=== PATIENT | female | born 1965 | race African-American/Black ===

== ENCOUNTER 2020-08-18 07:53 | Outpatient (REF) | payer BC, SELFPAY | END 2020-08-18 07:54 | disposition home or self-care (01) | LOC: HO.LAB 07:53 | PROVIDERS: PCP Internal Medicine; Visit Provider Internal Medicine | DX: Z20.828 Contact with and (suspected) exposure to other viral communicable diseases (principal) | CPT/HCPCS: 87635 ==

== ENCOUNTER 2021-03-13 17:28 | Emergency (ER) | payer BC, SELFPAY ==
--- NOTE | ~2021-03-13 | CT_ITS ---
EXAMINATION: CTA CHEST WITHOUT AND WITH CONTRAST (PE STUDY) CT ABDOMEN AND PELVIS WITH CONTRAST CLINICAL INFORMATION: Abdomen pain. Fevers. COMPARISON: Portions of a previous chest CT 10/17/16. TECHNIQUE: Multidetector CT of the abdomen and pelvis. The patient received: Oral contrast: No Intravenous contrast: 75 mL of Omnipaque 350 No contrast reaction reported Sagittal and coronal reformatted images were obtained on the technologist workstation. Total exam dose-length product 617 mGy-cm This CT examination was performed using dose optimization techniques as appropriate, variously including the following: *Automated exposure control *Adjustment of mA and/or kV according to patient size (this includes techniques or standardized protocols for targeted exams where dose is matched to indication/reason for exam; i.e. extremities or head) *Use of iterative reconstruction technique CLINICAL INFORMATION: Chest pain. Pleuritic pain. History of cancer. TECHNIQUE: CT angiography of the chest. Multidetector CT helical examination of the chest during the rapid IV administration 75 mL of intravenous Omnipaque 350. Extensive postprocessing was performed including reformatting and multiplanar reconstructions with maximum intensity projections. Pulmonary embolus technique. FINDINGS: Bolus quality: Adequate Pulmonary arteries: No pulmonary embolus demonstrated. The main pulmonary arteries are normal caliber. Lung: No abnormality the central airways. No suspicious mass or nodule. No change in a 0.3 cm nodule in the right middle lobe lateral segment. This does not require any further evaluation. No consolidation or edema. Pleura: No pleural effusion or pneumothorax. Mediastinum: There are no enlarged mediastinal or hilar lymph nodes. No suspicious abnormality esophagus. Vascular: There is no thoracic aortic aneurysm. No pericardial fluid. Chest Wall/Axilla: There are asymmetrically prominent left axillary lymph nodes. Correlate with recent vaccination. ABDOMEN/PELVIS: Liver, Gallbladder, And Biliary Tree: No suspicious abnormality of the liver. There is no opaque gallstone. There is no biliary dilation. Pancreas: Within normal limits Spleen: Normal Adrenal Glands: Normal Kidneys And Ureters: Limited by motion. There is no dilation of the urinary collecting system on either side. No suspicious renal mass. Some high density in the central aspect of each kidney likely represents excreted contrast. Detecting small calculi would be difficult. Gastrointestinal Tract: No localized colonic wall thickening. No CT evidence of acute appendicitis. Nonspecific pattern of fluid in gas within the small bowel. No suspicious abnormality in the stomach. The distal esophagus is slightly patulous. Abdominal Wall: No significant hernia is appreciated. Lymphovascular Structures And Fluid: There is no abdominal aortic aneurysm. The portal vein enhances. No measurably enlarged abdominal or pelvic lymph nodes. Bladder: No suspicious abnormality. Pelvic Viscera: The uterus may be surgically absent. No suspicious adnexal mass or collection. Musculoskeletal: No acute or suspicious osseous abnormality. CT/CT angio chest PE protocol IMPRESSION: No pulmonary embolus. No pneumonia or edema. No evidence of abdominal abscess or high-grade bowel obstruction. VTE: Negative
--- NOTE | 2021-03-13 18:13 | ED_ITS ---
HPI - Abdominal Pain General Chief Complaint: Dyspnea Stated Complaint: sob, fever, abd pain Time Seen by Provider: 03/13/21 18:13 Source: patient Mode of arrival: ambulatory Limitations: no limitations History of Present Illness MD elicited complaint: abdominal pain and other (dyspnea, fevers) Onset (ago): day(s) (today ) Pain Consistency: constant Location: diffuse Severity: moderate Quality: aching and fullness Radiation: none Migration to: no migration Exacerbating factors: movement Relieving factors: nothing Associated symptoms: nausea, fever, chills and other (dyspnea) Related Data Previous Rx's Medication Instructions Recorded azithromycin 250 mg tablet See Rx Instructions PO .COMPLEX #6 10/01/20 tab Allergies Allergy/AdvReac Type Severity Reaction Status Date / Time No Known Allergies Allergy Mild N/A Unverified 07/08/20 16:26 Review of Systems Review of Systems Constitutional : No Weight loss, pos Fever, pos Chills ENT/Mouth : No sore throat, No Rhinorrhea Eyes: No Swelling, No Redness Cardiovascular : No Chest Pain, pos SOB, NoEdema Respiratory : No Cough, No Sputum, No Wheezing Gastrointestinal : Positive Nausea, no Vomiting, no Diarrhea, positive abdominal Pain, No Hematochezia, No Melena Genitourinary : No Dysuria, No Urinary Frequency, No Hematuria, No Urgency Musculoskeletal : No joint pain, No Myalgias, No Joint Swelling Skin : No Skin Lesions, No rash Neuro : No Weakness, No Numbness, No Dizziness, No Headache Psych : No Anxiety/Panic, No Depression Heme/Lymph: No Bruising, No Lymphadenopathy Endocrine : No Polyuria, No Polydipsia All other systems reviewed and are negative. Physical Exam Vital Signs: Vital Signs: Last Vital Signs Temp 100.1 F 03/13/21 20:03 Pulse 77 03/13/21 20:03 Resp 18 03/13/21 20:03 BP 126/54 L 03/13/21 20:03 Pulse Ox 98 03/13/21 20:03 Body Mass Index 22.7 Appearance: Alert. Oriented X3. Anxious No acute distress. Eyes: Pupils equal, round and reactive to light. ENT: Pharynx normal. Neck: Normal inspection. Neck supple. CVS: Normal heart rate and rhythm. Pulses normal. Respiratory: No respiratory distress. Breath sounds normal. Mild tachypnea Abdomen: Soft and moderate epigastric ttp no rebound or guarding Skin: Skin warm and dry. Normal skin color. Normal skin turgor. Extremities: No lower extremity edema. No calf ttp Neuro: Oriented X 3. No motor deficit. No sensory deficit. Course Course Course Narrative: negative COVID, negative CTA and negative CT abdomen no WBC count no UTI no source of fever at this time, no meningeal signs possible viral will send home with precautions MDM - Abdominal Pain MDM Narrative Medical decision making narrative: 55 yo female with no sig PMH here with reports of fever, abdominal pain and shortness of breath - at this time very vague complaints will new onset shortness of breath, fevers and upper abdominal pain at this time will need labs, lactic acid, cultures, CT scan of abdomen to r/o colitis, PE study given fevers and reported sudden onset of shortness of breath, dispo per results and findings. Lab Data Result diagrams: 03/13/21 19:10 03/13/21 19:10 Labs: Lab Results 03/13/21 03/13/21 03/13/21 Range/Units 19:10 19:10 19:10 WBC 6.4 (4.8-10.8) X10*3/uL RBC 4.15 L (4.20-5.50) X10*6/uL Hgb 12.9 (12.0-16.0) g/dl Hct 38.3 (37-47) % MCV 92.3 (80-98) fL MCH 31.1 (27.0-33.0) pg MCHC 33.7 (31.0-35.0) g/dl RDW 13.2 (11.0-16.0) % Plt Count 263 (160-400) X10*3/uL MPV 9.2 L (9.4-12.3) fL Immature Gran % (Auto) 0.3 (0.0-0.4) % Neut % (Auto) 79.8 H (45-73) % Lymph % (Auto) 7.6 L (20-40) % [place] % (Auto) 11.9 H (2-11) % Eos % (Auto) 0.2 (0-4) % Baso % (Auto) 0.2 (0-2) % Lymph # (Auto) 0.5 L (1.2-4.9) X10*3/uL [place] # (Auto) 0.8 (0.1-1.2) X10*3/uL Eos # (Auto) 0.0 (0.0-0.4) X10*3/uL Baso # (Auto) 0.0 (0.0-0.2) X10*3/uL Abs Immat Gran (auto) 0.02 (0.00-0.03) X10*3/uL Absolute Neuts (auto) 5.1 (2.0-8.3) X10*3/uL Absolute Nucleated RBC 0.000 (0.0-0.012) X10*3/uL Nucleated RBC % (auto) 0.0 (0.0-0.2) /100WBC Smear Tech's Comments VERIFIED Sodium 138 (135-145) mmol/L Potassium 4.1 (3.3-5.1) mmol/L Chloride 102 (96-108) mmol/L Carbon Dioxide 25 (22-29) mmol/L Anion Gap 15 (12-20) BUN 11 (9-16) mg/dL Creatinine 0.97 (0.5-1.4) mg/dL Estim Creat Clear Calc 62.2 Estimated GFR 59 Random Glucose 91 (60-115) mg/dL Lactic Acid (0.5-2.0) mmol/L Calcium 9.5 (8.4-10.2) mg/dL Magnesium (1.6-2.6) mg/dL Total Bilirubin (0.0-1.0) mg/dL Direct Bilirubin (0.0-0.5) mg/dL AST (5-31) U/L ALT (0-31) U/L Alkaline Phosphatase (39-117) U/L Troponin I High Sens (<3.5-17.0) ng/L Total Protein (6.5-8.0) g/dL Albumin (3.5-5.0) g/dL Lipase (8-78) U/L Urine Color Urine Appearance Urine pH (5.0-8.0) Ur Specific [place] (1.005-1.025) Urine Protein (NEG-TRACE) MG/DL Urine Glucose (UA) (NEG) MG/DL Urine Ketones (NEG) MG/DL Urine Blood (NEG) Urine Nitrite (NEG) Ur Leukocyte Esterase (NEG) Urine RBC (0) /HPF Urine WBC (0-4) /HPF Ur Squamous Epith Cells /LPF Urine Bacteria /LPF Urine Mucus /LPF COVID-19 (PEDRITO) Negative (Negative) COVID-19 Clin Com See Note 03/13/21 03/13/21 03/13/21 Range/Units 19:10 19:10 19:10 WBC (4.8-10.8) X10*3/uL RBC (4.20-5.50) X10*6/uL Hgb (12.0-16.0) g/dl Hct (37-47) % MCV (80-98) fL MCH (27.0-33.0) pg MCHC (31.0-35.0) g/dl RDW (11.0-16.0) % Plt Count (160-400) X10*3/uL MPV (9.4-12.3) fL Immature Gran % (Auto) (0.0-0.4) % Neut % (Auto) (45-73) % Lymph % (Auto) (20-40) % [place] % (Auto) (2-11) % Eos % (Auto) (0-4) % Baso % (Auto) (0-2) % Lymph # (Auto) (1.2-4.9) X10*3/uL [place] # (Auto) (0.1-1.2) X10*3/uL Eos # (Auto) (0.0-0.4) X10*3/uL Baso # (Auto) (0.0-0.2) X10*3/uL Abs Immat Gran (auto) (0.00-0.03) X10*3/uL Absolute Neuts (auto) (2.0-8.3) X10*3/uL Absolute Nucleated RBC (0.0-0.012) X10*3/uL Nucleated RBC % (auto) (0.0-0.2) /100WBC Smear Tech's Comments Sodium (135-145) mmol/L Potassium (3.3-5.1) mmol/L Chloride (96-108) mmol/L Carbon Dioxide (22-29) mmol/L Anion Gap (12-20) BUN (9-16) mg/dL Creatinine (0.5-1.4) mg/dL Estim Creat Clear Calc Estimated GFR Random Glucose (60-115) mg/dL Lactic Acid 1.1 (0.5-2.0) mmol/L Calcium (8.4-10.2) mg/dL Magnesium 1.7 (1.6-2.6) mg/dL Total Bilirubin 0.7 (0.0-1.0) mg/dL Direct Bilirubin 0.2 (0.0-0.5) mg/dL AST 23 (5-31) U/L ALT 18 (0-31) U/L Alkaline Phosphatase 77 (39-117) U/L Troponin I High Sens < 3.5 (<3.5-17.0) ng/L Total Protein 7.8 (6.5-8.0) g/dL Albumin 4.6 (3.5-5.0) g/dL Lipase 44 (8-78) U/L Urine Color Urine Appearance Urine pH (5.0-8.0) Ur Specific [place] (1.005-1.025) Urine Protein (NEG-TRACE) MG/DL Urine Glucose (UA) (NEG) MG/DL Urine Ketones (NEG) MG/DL Urine Blood (NEG) Urine Nitrite (NEG) Ur Leukocyte Esterase (NEG) Urine RBC (0) /HPF Urine WBC (0-4) /HPF Ur Squamous Epith Cells /LPF Urine Bacteria /LPF Urine Mucus /LPF COVID-19 (PEDRITO) (Negative) COVID-19 Clin Com 03/13/21 Range/Units 20:05 WBC (4.8-10.8) X10*3/uL RBC (4.20-5.50) X10*6/uL Hgb (12.0-16.0) g/dl Hct (37-47) % MCV (80-98) fL MCH (27.0-33.0) pg MCHC (31.0-35.0) g/dl RDW (11.0-16.0) % Plt Count (160-400) X10*3/uL MPV (9.4-12.3) fL Immature Gran % (Auto) (0.0-0.4) % Neut % (Auto) (45-73) % Lymph % (Auto) (20-40) % [place] % (Auto) (2-11) % Eos % (Auto) (0-4) % Baso % (Auto) (0-2) % Lymph # (Auto) (1.2-4.9) X10*3/uL [place] # (Auto) (0.1-1.2) X10*3/uL Eos # (Auto) (0.0-0.4) X10*3/uL Baso # (Auto) (0.0-0.2) X10*3/uL Abs Immat Gran (auto) (0.00-0.03) X10*3/uL Absolute Neuts (auto) (2.0-8.3) X10*3/uL Absolute Nucleated RBC (0.0-0.012) X10*3/uL Nucleated RBC % (auto) (0.0-0.2) /100WBC Smear Tech's Comments Sodium (135-145) mmol/L Potassium (3.3-5.1) mmol/L Chloride (96-108) mmol/L Carbon Dioxide (22-29) mmol/L Anion Gap (12-20) BUN (9-16) mg/dL Creatinine (0.5-1.4) mg/dL Estim Creat Clear Calc Estimated GFR Random Glucose (60-115) mg/dL Lactic Acid (0.5-2.0) mmol/L Calcium (8.4-10.2) mg/dL Magnesium (1.6-2.6) mg/dL Total Bilirubin (0.0-1.0) mg/dL Direct Bilirubin (0.0-0.5) mg/dL AST (5-31) U/L ALT (0-31) U/L Alkaline Phosphatase (39-117) U/L Troponin I High Sens (<3.5-17.0) ng/L Total Protein (6.5-8.0) g/dL Albumin (3.5-5.0) g/dL Lipase (8-78) U/L Urine Color YELLOW Urine Appearance CLEAR Urine pH 6.0 (5.0-8.0) Ur Specific [place] 1.010 (1.005-1.025) Urine Protein NEG (NEG-TRACE) MG/DL Urine Glucose (UA) NEG (NEG) MG/DL Urine Ketones 15 (NEG) MG/DL Urine Blood TRACE (NEG) Urine Nitrite NEG (NEG) Ur Leukocyte Esterase NEG (NEG) Urine RBC 0-2 (0) /HPF Urine WBC 0-2 (0-4) /HPF Ur Squamous Epith Cells TRACE /LPF Urine Bacteria TRACE /LPF Urine Mucus NONE /LPF COVID-19 (PEDRITO) (Negative) COVID-19 Clin Com ECG Data Attestation: I personally reviewed and interpreted this ECG as follows: ECG interpretation date: 03/13/21 ECG interpretation time: 18:58 Interpretation: Rate: 85 Rhythm: NSR with occ PVCs Lookout: normal Normal P waves. Normal EPHRAIM. Normal QRS complex. ST T wave : no BRAN, nonspecific inf leads qTC: normal prior studies: no acute ischemia The study has been interpreted contemporaneously by me. . Discharge Plan Discharge Clinical Impression: Fever Qualifiers: Fever type: due to other condition Qualified Code(s): R50.81 - Fever presenting with conditions classified elsewhere Patient Disposition: Home, Self-Care Additional Instructions: return to ED for any worsening symptoms or concerns negative COVID, negative urine for infection, negative CTA for PE and pneumonia, no acute infection in the abdomen repeat COVID test in 2 days Prescriptions: No Action azithromycin 250 mg tablet See Rx Instructions PO .COMPLEX Qty: 6 RF: 0 Referrals: Son Thompson MD [Primary Care Provider] - 2 days (if not better) Stand Alone Forms: Work/School Release [facility] Past Medical History Attestation statement: The following information was validated with the patient. Surgical History History of hysterectomy Social History Social History Alcohol intake: current Alcohol intake frequency: a few times a month Smoking Status: Current every day smoker Use of substances other than those prescribed or required for medical reasons: No Advance Directives: No Advance Directives Information Provided: Yes
[2021-03-13 18:19] VITALS: BP 139/80; PULSE 91; RESP 17; TEMP 37.6; O2SAT 98
--- NOTE | 2021-03-13 18:23 | ECG_ITS ---
Test Reason : dyspnea Blood Pressure : / mmHG Vent. Rate : 085 BPM Atrial Rate : 085 BPM P-R Int : 158 ms QRS Dur : 084 ms QT Int : 352 ms P-R-T Axes : 086 077 035 degrees QTc Int : 418 ms Sinus rhythm with occasional Premature ventricular complexes Otherwise normal ECG No previous ECGs available Referred By: Jayde Green Electronically Signed By:RADHA KIDD
[2021-03-13 18:50] VITALS: BP 142/79; PULSE 80; RESP 22; TEMP 38.8; O2SAT 99; BMI 22.7
[2021-03-13 19:20] LABS: Basophils Percent Auto 0.2 % (0-2); Eosinophils Percent Auto 0.2 % (0-4); Hematocrit 38.3 % (37-47); Hemoglobin 12.9 g/dl (12.0-16.0); Imm Gran Abs Auto 0.02 X10*3/uL (0.00-0.03); Imm Gran Pct Auto 0.3 % (0.0-0.4); Lymphocytes Absolute Auto 0.5 X10*3/uL (1.2-4.9); Lymphocytes Percent Auto 7.6 % (20-40); MANUAL DIFF FLAG SCAN; Mean Corpuscular HGB Conc 33.7 g/dl (31.0-35.0); Mean Corpuscular Hemoglobin 31.1 pg (27.0-33.0); Mean Corpuscular Volume 92.3 fL (80-98); Mean Platelet Volume 9.2 fL (9.4-12.3); Monocytes Absolute Auto 0.8 X10*3/uL (0.1-1.2); Monocytes Percent Auto 11.9 % (2-11); Neutrophils Absolute Auto 5.1 X10*3/uL (2.0-8.3); Neutrophils Percent Auto 79.8 % (45-73); Platelet Count 263 X10*3/uL (160-400); Red Blood Count 4.15 X10*6/uL (4.20-5.50); Red Cell Distribution Width 13.2 % (11.0-16.0); SCAN SMEAR FLAG 1; White Blood Count 6.4 X10*3/uL (4.8-10.8)
[2021-03-13] MEDS: 0.9 % Sodium Chloride 500 ML IV (19:25)
[2021-03-13] MEDS: ondansetron HCL 4 MG/2 ML VIAL IVPUSH (19:25)
[2021-03-13] MEDS: Acetaminophen 325 MG TABLET 650 MG PO (19:26)
[2021-03-13] MEDS: Morphine Sulfate 4 MG/ML CARTRIDGE IVPUSH (19:26)
[2021-03-13 19:38] LABS: SLIDE REVIEW VERIFIED
[2021-03-13 19:39] LABS: COVID-19 Test Negative (Negative)
[2021-03-13 19:45] LABS: Lactic Acid 1.1 mmol/L (0.5-2.0)
[2021-03-13 19:48] LABS: Anion Gap 15 (12-20); Blood Urea Nitrogen 11 mg/dL (9-16); Calcium 9.5 mg/dL (8.4-10.2); Carbon Dioxide 25 mmol/L (22-29); Chloride 102 mmol/L (96-108); Creatinine Clr Calc Pharmacy 62.2; Estimated Glomerular Filt Rate 59; Glucose Random 91 mg/dL (60-115); Potassium 4.1 mmol/L (3.3-5.1); Sodium 138 mmol/L (135-145)
[2021-03-13 19:49] LABS: Alanine Aminotransferase 18 U/L (0-31); Albumin Level 4.6 g/dL (3.5-5.0); Alkaline Phosphatase 77 U/L (39-117); Aspartate Amino Transferase 23 U/L (5-31); Bilirubin Direct 0.2 mg/dL (0.0-0.5); Bilirubin Total 0.7 mg/dL (0.0-1.0); Lipase 44 U/L (8-78); Magnesium 1.7 mg/dL (1.6-2.6); Total Protein 7.8 g/dL (6.5-8.0)
[2021-03-13 19:54] LABS: Troponin-I High Sensitivity < 3.5 ng/L (<3.5-17.0)
[2021-03-13 20:03] VITALS: BP 126/54; PULSE 77; RESP 18; TEMP 37.8; O2SAT 98
[2021-03-13 20:34] LABS: Color Urine YELLOW; Glucose Urine UA NEG (NEG); Leukocyte Esterase Urine NEG (NEG); Nitrite Urine NEG (NEG); Urine Blood TRACE (NEG); Urine Ketones 15 MG/DL (NEG); Urine Protein NEG (NEG-TRACE)
[2021-03-13 20:35] LABS: Appearance Urine CLEAR
[2021-03-13 20:42] LABS: Bacteria Urine TRACE /LPF; RBC Urine 0-2 /HPF (0); Squamous Epithelial Cell Urine TRACE /LPF; WBC Urine 0-2 /HPF (0-4)
[2021-03-13] MEDS: iohexoL 350 MG/ML 100 ML INFUS..BTL IV (21:31)
[2021-03-13 21:51] VITALS: BP 115/70; PULSE 75; RESP 18; TEMP 37.4; O2SAT 97
== END 2021-03-13 22:06 | disposition home or self-care (01) ==
PROVIDERS: Emergency Provider Emergency Medicine; PCP Internal Medicine
DX: R50.9 Fever, unspecified (principal); R06.00 Dyspnea, unspecified; R06.02 Shortness of breath; Z20.822 Contact with and (suspected) exposure to COVID-19; F17.200 Nicotine dependence, unspecified, uncomplicated; Z71.6 Tobacco abuse counseling; Z79.899 Other long term (current) drug therapy
CPT/HCPCS: 36415; 71275; 74177; 80048; 80076; 81001; 83605; 83690; 83735; 84484; 85025; 87040; 87635; 93005; 96365; 96375; 99285; J2270; J2405; Q9967

== ENCOUNTER 2021-03-16 08:19 | Emergency (ER) | payer BC, SELFPAY ==
--- NOTE | ~2021-03-16 | XR_ITS ---
EXAMINATION: XR CHEST CLINICAL INFORMATION: Cough. Shortness of breath. COMPARISON: Previous chest CTA most recent February 2021 and chest x-ray most recent February 2011 TECHNIQUE: Frontal view of the chest was obtained. FINDINGS: The cardiac and mediastinal contours are normal. There are nodular densities at both lung bases which when compared previous chest CT scan likely represent nipple shadows. The lungs are otherwise clear. There is no pleural effusion or pneumothorax. Bony structures are unremarkable. XR/XR chest 1V IMPRESSION: No evidence for acute disease in the chest.
--- NOTE | 2021-03-16 08:35 | ECG_ITS ---
Test Reason : EPIGASTRIC PAIN Blood Pressure : / mmHG Vent. Rate : 087 BPM Atrial Rate : 087 BPM P-R Int : 160 ms QRS Dur : 088 ms QT Int : 346 ms P-R-T Axes : 084 085 051 degrees QTc Int : 416 ms Normal sinus rhythm Normal ECG When compared with ECG of 13-MAR-2021 18:54, Premature ventricular complexes are no longer Present Referred By: Sophie Logan Electronically Signed By:RADHA KIDD
--- NOTE | 2021-03-16 08:38 | ED.GENADULT ---
HPI - General Adult General Stated complaint: flu like symptoms <Sophie Logan NP - Last Filed: 03/16/21 16:19> Time Seen by Provider: 03/16/21 08:26 <Sophie Logan NP - Last Filed: 03/16/21 16:19> Source: patient and family <BEN Jose Last Filed: 03/16/21 16:19> Mode of arrival: ambulatory <BEN Jose Last Filed: 03/16/21 16:19> Limitations: no limitations <BEN Jose Last Filed: 03/16/21 16:19> History of Present Illness HPI narrative: 55 yo female previously healthy here with complaints of fever up to 103.8, dry cough, shortness of breath, epigastric pain, nausea and vomiting x 4 days. She has had some constipation but today had 2 loose bowel movements described as diarrhea. No headache, neck pain, joint pain, rash, chest pain. Patient denies any recent travel. No sick contacts. No recent tick bites. Has a dog and cat at home. Seen here Sunday when symptoms 1st began and had a CT of the chest and abdomen which were negative. She also had negative urine, labs and COVID screen. She was discharged home with diagnosis of viral syndrome. Patient tells me she has continued to have symptoms however. Very little p.o. intake now feeling weak. COVID vaccine x2 in January. <Sopihe Logan NP - Last Filed: 03/16/21 16:19> Related Data Home medications: Previous Rx's Medication Instructions Recorded azithromycin 250 mg tablet See Rx Instructions PO .COMPLEX #6 10/01/20 tab doxycycline monohydrate 100 mg PO BID #20 cap 03/16/21 ondansetron 4 mg PO Q6H PRN #10 tab 03/16/21 <BEN Jose Last Filed: 03/16/21 16:19> Allergies/adverse reactions: Allergies Allergy/AdvReac Type Severity Reaction Status Date / Time No Known Allergies Allergy Mild N/A Unverified 07/08/20 16:26 <BEN Jose Last Filed: 03/16/21 16:19> Review of Systems Review of Systems: Yes all other systems are reviewed and are negative <Sophie Logan NP - Last Filed: 03/16/21 16:19> Constitutional: Constitutional: Reports no additional constitutional complaints, Denies body ache(s), Denies chills, Reports fever(s), Denies headache(s) and Reports weakness <Sophie Logan NP - Last Filed: 03/16/21 16:19> Eyes: Eyes: Reports no additional eye complaints and Denies change in vision <Sophie Logan RECEIVING WORKER - Last Filed: 03/16/21 16:19> ENT: Reports system reviewed and no additional complaints, except as documented, Denies dizziness, Denies headache(s), Denies nasal congestion, Denies nasal discharge and Denies neck pain <Sophie Logan NP - Last Filed: 03/16/21 16:19> Cardiovascular: Cardiovascular: Reports no additional cardiovascular complaints, Denies chest pain, Denies leg edema and Reports dyspnea <Sophie Logan NP - Last Filed: 03/16/21 16:19> Respiratory: Respiratory: Reports no additional respiratory complaints, Reports cough and Reports dyspnea <Sophie Logan NP - Last Filed: 03/16/21 16:19> Gastrointestinal: Gastrointestinal: Reports no additional gastrointestinal complaints, Reports abdominal pain, Denies diarrhea, Reports nausea and Reports vomiting <Sophie Logan NP - Last Filed: 03/16/21 16:19> Genitourinary: Genitourinary: Reports no additional female genitourinary complaints and Denies urinary incontinence <Sophie Logan NP - Last Filed: 03/16/21 16:19> Musculoskeletal: Musculoskeletal: Reports no additional musculoskeletal complaints, Denies back pain, Denies arthralgias, Denies joint swelling, Denies neck pain, Denies numbness and Denies tingling <Sophie Logan NP - Last Filed: 03/16/21 16:19> Integumentary/Breasts: Skin/Breast: Reports system reviewed and no additional complaints, except as docu and Denies rash <Sophie Logan NP - Last Filed: 03/16/21 16:19> Neurologic: Reports system reviewed and no additional complaints, except as documented, Denies Abnormal speech present, Denies dizziness, Denies headache(s), Denies numbness, Denies tingling and Reports weakness <Sophie Logan NP - Last Filed: 03/16/21 16:19> [facility] Past Medical History Attestation statement: The following information was validated with the patient. <Spohie Logan NP - Last Filed: 03/16/21 16:19> Source: old records reviewed and nursing notes reviewed <Sophie Logan NP - Last Filed: 03/16/21 16:19> Surgical History: Surgical History History of hysterectomy <Sophie Logan NP - Last Filed: 03/16/21 16:19> Social History Social History: Social History Alcohol intake: current Alcohol intake frequency: does not drink Smoked in Last 30 Days: No Use of substances other than those prescribed or required for medical reasons: Yes Substance Use Type: Marijuana Advance Directives: Yes Advance Directives Information Provided: No Advance Directives on File: No <Sophie Logan NP - Last Filed: 03/16/21 16:19> Physical Exam Vital Signs: Vital Signs: Last Vital Signs Temp 100.3 F 03/16/21 13:37 Pulse 89 03/16/21 14:00 Resp 16 03/16/21 14:00 BP 114/58 L 03/16/21 14:00 Pulse Ox 97 03/16/21 14:00 Body Mass Index 23.3 <Sophie Logan NP - Last Filed: 03/16/21 16:19> Vital Signs: Last Vital Signs Temp 100.3 F 03/16/21 13:37 Pulse 89 03/16/21 14:00 Resp 16 03/16/21 14:00 BP 114/58 L 03/16/21 14:00 Pulse Ox 97 03/16/21 14:00 Body Mass Index 23.3 <Barrington Low MD - Last Filed: 03/16/21 10:42> Const: General: cooperative, healthy appearing, comfortable and no acute distress <Sophie Logan NP - Last Filed: 03/16/21 16:19> Orientation/consciousness: patient oriented x3 <Sophie Logan NP - Last Filed: 03/16/21 16:19> Limitations: no limitations <Sophie Logan NP - Last Filed: 03/16/21 16:19> HENMT: Head: Yes normal to inspection <Sophie Logan NP - Last Filed: 03/16/21 16:19> Ears: hearing grossly normal bilaterally and TM's normal bilaterally <Sophie Logan NP - Last Filed: 03/16/21 16:19> General nose exam: Normal external nose present <Sophie Logan NP - Last Filed: 03/16/21 16:19> Face and sinus: Yes normal facial exam <Sophie Logan NP - Last Filed: 03/16/21 16:19> Mouth: Normal oral and palatal mucosa present <Sophie Logan NP - Last Filed: 03/16/21 16:19> Throat: Yes posterior oropharynx normal, Yes tonsils normal and Yes uvula midline <Sophie Logan NP - Last Filed: 03/16/21 16:19> Eyes: General: appearance normal, both eyes and all related structures <Sophie Logan NP - Last Filed: 03/16/21 16:19> Pupils: Equal, round and reactive pupils present <Sophie Logan NP - Last Filed: 03/16/21 16:19> Neck: Neck: Yes normal visual inspection, Yes full ROM, Yes no lymphadenopathy and Yes no meningeal signs <Sophie Logan NP - Last Filed: 03/16/21 16:19> Chest: Chest palpation & inspection: normal inspection of the chest <Sophie Logan NP - Last Filed: 03/16/21 16:19> Resp: Effort & Inspection: normal respiratory effort <Sophie Logan NP - Last Filed: 03/16/21 16:19> Auscultation: clear to auscultation bilaterally <Sophie Logan NP - Last Filed: 03/16/21 16:19> Cardio: Rate: regular rate <Sophie Logan NP - Last Filed: 03/16/21 16:19> Rhythm: regular rhythm <Sophie Logan NP - Last Filed: 03/16/21 16:19> Peripheral pulses: Peripheral pulses 2+ throughout <Sophie Logan NP - Last Filed: 03/16/21 16:19> GI: Inspection: Yes normal to inspection <Sophie Logan NP - Last Filed: 03/16/21 16:19> Palpation (GI): Soft to palpation and Tenderness to palpation present (GI) (Epigastric tenderness-moderate with guarding) <Sophie Logan NP - Last Filed: 03/16/21 16:19> Auscultation: normal bowel sounds <Sophie Logan NP - Last Filed: 03/16/21 16:19> Back/Spine/Pelvis: Thoracic/Lumbar Spine: thoracic and lumbar spine normal to inspection <Sophie Logan NP - Last Filed: 03/16/21 16:19> Skin: General skin exam: no rashes or lesions noted <Sophie Logan NP - Last Filed: 03/16/21 16:19> Neuro: General: patient oriented x3, no meningeal signs, no focal motor deficits and normal sensation to monofilament <Sophie Logan NP - Last Filed: 03/16/21 16:19> Cranial nerves: Yes Equal, round and reactive pupils present <Sophie Logan RECEIVING WORKER - Last Filed: 03/16/21 16:19> Cognition (Neuro): normal cognition <Sophie Logan NP - Last Filed: 03/16/21 16:19> Speech: No Abnormal speech present <Sophie Logan NP - Last Filed: 03/16/21 16:19> Gait exam (Neuro): Normal gait present <Sophie Logan NP - Last Filed: 03/16/21 16:19> Motor exam (neuro): 5/5 motor strength present throughout <Sophie Logan NP - Last Filed: 03/16/21 16:19> Extrem: General: Yes normal to inspection, Yes no pedal edema and Yes no calf tenderness <Sophie Logan NP - Last Filed: 03/16/21 16:19> Course Course Course Narrative: 55-year-old female here with 4 days of shortness of breath, dry cough, epigastric pain, nausea, vomiting, fevers up to 103.8 now with generalized weakness due to decreased p.o. intake. Per patient's temp of 103.8 degrees this morning. Took Tylenol prior to arrival. On arrival she is afebrile. She has some moderate epigastric tenderness with guarding but no rebound. Exam otherwise is benign. Due to persistent fever will check labs, UA, COVID screen, chest x-ray. Will place PIV and give NSB, antiemetic, analgesia and re-assess. 1040-troponin mildly elevated. No chest pain or EKG changes. Plan for repeat 3 hour troponin. Chest x-ray, urine negative. Patient's diff shows a mild thrombocytopenia, lymphocytopenia with mildly increased LFTs. Consider tick-borne illness. All studies pending and will not have back today. Discussed with Dr Low with plan to give course of IV doxycyline for presumed. Will need PO trial prior to discharge. 1400-temp improving. Patient has not had any additional vomiting episodes here. Feeling improved. Still some mild discomfort in the epigastric area but is able to tolerate PO. Likely tick related. Labs are pending and will take several days. Treating for presumed with doxycycline. Patient is agreeable with this plan of care with at the bedside. We reviewed worrisome signs and symptoms such as inability to tolerate p.o., severe abdominal pain, fever which is not respond to Motrin and tylenol, headache, neck pain or stiffness and when to return to ED. Comfortable with discharge home. <Sophie Logan NP - Last Filed: 03/16/21 16:19> history and labs seem like ehrlichiosis will give doxy and dc home <Barrington Low MD - Last Filed: 03/16/21 10:42> Medical Decision Making MDM Narrative Medical decision making narrative: UTI, pneumonia, viral syndrome, covid 19, rickettsia <Sophie Logan NP - Last Filed: 03/16/21 16:19> Medical Records Medical records reviewed: Yes I reviewed the patient's medical records. <Sophie Logan NP - Last Filed: 03/16/21 16:19> Lab Data Lab results reviewed: Yes I reviewed the patient's lab results. <Sophie Logan NP - Last Filed: 03/16/21 16:19> Result diagrams: : 03/16/21 09:03 03/16/21 09:03 <Sophie Logan NP - Last Filed: 03/16/21 16:19> Labs: Lab Results 03/16/21 03/16/21 03/16/21 Range/Units 09:01 09:03 09:03 WBC 5.3 (4.8-10.8) X10*3/uL RBC 4.22 (4.20-5.50) X10*6/uL Hgb 12.9 (12.0-16.0) g/dl Hct 37.8 (37-47) % MCV 89.6 (80-98) fL MCH 30.6 (27.0-33.0) pg MCHC 34.1 (31.0-35.0) g/dl RDW 12.8 (11.0-16.0) % Plt Count 128 L D (160-400) X10*3/uL MPV 9.9 (9.4-12.3) fL Immature Gran % (Auto) Cancelled Neut % (Auto) Cancelled Lymph % (Auto) Cancelled [place] % (Auto) Cancelled Eos % (Auto) Cancelled Baso % (Auto) Cancelled Lymph # (Auto) Cancelled [place] # (Auto) Cancelled Eos # (Auto) Cancelled Baso # (Auto) Cancelled Abs Immat Gran (auto) Cancelled Absolute Neuts (auto) Cancelled Absolute Nucleated RBC 0.000 (0.0-0.012) X10*3/uL Nucleated RBC % (auto) 0.0 (0.0-0.2) /100WBC Neutrophils % (Manual) 84 H (45-73) % Band Neutrophils % 7 H (3-5) % Lymphocytes % (Manual) 8 L (20-40) % Atypical Lymphs % (Man) 1 (0-6) % Abs Neuts (Manual) 4.8 (2.2-7.9) X10*3/uL Lymphocytes # (Manual) 0.4 L (0.6-4.8) X10*3/uL Atyp Lymphs # (Manual) 0.1 x10*3/uL Toxic Vacuolation PRESENT WBC Morphology Comment DYSMORPHIC Platelet Estimate SLIGHTLY DECREASED (NORMAL) Plt Morphology Comment NORMAL RBC Morphology NOTED Acanthocytes (Spur) 1+ (0-2) /OIF ESR 14 (0-20) MM/HR PT (10.8-13.0) SEC INR (0.9-1.1) Sodium (135-145) mmol/L Potassium (3.3-5.1) mmol/L Chloride (96-108) mmol/L Carbon Dioxide (22-29) mmol/L Anion Gap (12-20) BUN (9-16) mg/dL Creatinine (0.5-1.4) mg/dL Estim Creat Clear Calc Estimated GFR Random Glucose (60-115) mg/dL Lactic Acid 1.0 (0.5-2.0) mmol/L Calcium (8.4-10.2) mg/dL Magnesium (1.6-2.6) mg/dL Total Bilirubin (0.0-1.0) mg/dL Direct Bilirubin (0.0-0.5) mg/dL AST (5-31) U/L ALT (0-31) U/L Alkaline Phosphatase (39-117) U/L Troponin I High Sens (<3.5-17.0) ng/L C-Reactive Protein (< or = 0.50) mg/dL Total Protein (6.5-8.0) g/dL Albumin (3.5-5.0) g/dL Urine Color Urine Appearance Urine pH (5.0-8.0) Ur Specific [place] (1.005-1.025) Urine Protein (NEG-TRACE) MG/DL Urine Glucose (UA) (NEG) MG/DL Urine Ketones (NEG) MG/DL Urine Blood (NEG) Urine Nitrite (NEG) Ur Leukocyte Esterase (NEG) Urine RBC (0) /HPF Urine WBC (0-4) /HPF Ur Squamous Epith Cells /LPF Ur Renal Epithelial Cell /LPF Calcium Oxalate Crystal /LPF Amorphous Sediment /LPF Urine Bacteria /LPF Granular Casts /LPF Coronavirus (PCR) (Negative) Influenza Type A (PCR) (Negative) Influenza Type B (PCR) (Negative) RSV RNA Qual (PCR) (Negative) 03/16/21 03/16/21 03/16/21 Range/Units 09:03 09:03 09:03 WBC (4.8-10.8) X10*3/uL RBC (4.20-5.50) X10*6/uL Hgb (12.0-16.0) g/dl Hct (37-47) % MCV (80-98) fL MCH (27.0-33.0) pg MCHC (31.0-35.0) g/dl RDW (11.0-16.0) % Plt Count (160-400) X10*3/uL MPV (9.4-12.3) fL Immature Gran % (Auto) Neut % (Auto) Lymph % (Auto) [place] % (Auto) Eos % (Auto) Baso % (Auto) Lymph # (Auto) [place] # (Auto) Eos # (Auto) Baso # (Auto) Abs Immat Gran (auto) Absolute Neuts (auto) Absolute Nucleated RBC (0.0-0.012) X10*3/uL Nucleated RBC % (auto) (0.0-0.2) /100WBC Neutrophils % (Manual) (45-73) % Band Neutrophils % (3-5) % Lymphocytes % (Manual) (20-40) % Atypical Lymphs % (Man) (0-6) % Abs Neuts (Manual) (2.2-7.9) X10*3/uL Lymphocytes # (Manual) (0.6-4.8) X10*3/uL Atyp Lymphs # (Manual) x10*3/uL Toxic Vacuolation WBC Morphology Comment Platelet Estimate (NORMAL) Plt Morphology Comment RBC Morphology Acanthocytes (Spur) /OIF ESR (0-20) MM/HR PT 12.3 (10.8-13.0) SEC INR 1.0 (0.9-1.1) Sodium 137 (135-145) mmol/L Potassium 3.3 (3.3-5.1) mmol/L Chloride 100 (96-108) mmol/L Carbon Dioxide 20 L (22-29) mmol/L Anion Gap 20 (12-20) BUN 15 (9-16) mg/dL Creatinine 1.34 (0.5-1.4) mg/dL Estim Creat Clear Calc 43.4 Estimated GFR 41 Random Glucose 109 (60-115) mg/dL Lactic Acid (0.5-2.0) mmol/L Calcium 8.8 D (8.4-10.2) mg/dL Magnesium 1.8 (1.6-2.6) mg/dL Total Bilirubin 0.6 (0.0-1.0) mg/dL Direct Bilirubin 0.3 (0.0-0.5) mg/dL AST 65 H (5-31) U/L ALT 20 (0-31) U/L Alkaline Phosphatase 65 (39-117) U/L Troponin I High Sens 14.8 D (<3.5-17.0) ng/L C-Reactive Protein 11.76 H (< or = 0.50) mg/dL Total Protein 7.3 (6.5-8.0) g/dL Albumin 4.3 (3.5-5.0) g/dL Urine Color Urine Appearance Urine pH (5.0-8.0) Ur Specific [place] (1.005-1.025) Urine Protein (NEG-TRACE) MG/DL Urine Glucose (UA) (NEG) MG/DL Urine Ketones (NEG) MG/DL Urine Blood (NEG) Urine Nitrite (NEG) Ur Leukocyte Esterase (NEG) Urine RBC (0) /HPF Urine WBC (0-4) /HPF Ur Squamous Epith Cells /LPF Ur Renal Epithelial Cell /LPF Calcium Oxalate Crystal /LPF Amorphous Sediment /LPF Urine Bacteria /LPF Granular Casts /LPF Coronavirus (PCR) (Negative) Influenza Type A (PCR) (Negative) Influenza Type B (PCR) (Negative) RSV RNA Qual (PCR) (Negative) 03/16/21 03/16/21 03/16/21 Range/Units 09:19 11:01 11:52 WBC (4.8-10.8) X10*3/uL RBC (4.20-5.50) X10*6/uL Hgb (12.0-16.0) g/dl Hct (37-47) % MCV (80-98) fL MCH (27.0-33.0) pg MCHC (31.0-35.0) g/dl RDW (11.0-16.0) % Plt Count (160-400) X10*3/uL MPV (9.4-12.3) fL Immature Gran % (Auto) Neut % (Auto) Lymph % (Auto) [place] % (Auto) Eos % (Auto) Baso % (Auto) Lymph # (Auto) [place] # (Auto) Eos # (Auto) Baso # (Auto) Abs Immat Gran (auto) Absolute Neuts (auto) Absolute Nucleated RBC (0.0-0.012) X10*3/uL Nucleated RBC % (auto) (0.0-0.2) /100WBC Neutrophils % (Manual) (45-73) % Band Neutrophils % (3-5) % Lymphocytes % (Manual) (20-40) % Atypical Lymphs % (Man) (0-6) % Abs Neuts (Manual) (2.2-7.9) X10*3/uL Lymphocytes # (Manual) (0.6-4.8) X10*3/uL Atyp Lymphs # (Manual) x10*3/uL Toxic Vacuolation WBC Morphology Comment Platelet Estimate (NORMAL) Plt Morphology Comment RBC Morphology Acanthocytes (Spur) /OIF ESR (0-20) MM/HR PT (10.8-13.0) SEC INR (0.9-1.1) Sodium (135-145) mmol/L Potassium (3.3-5.1) mmol/L Chloride (96-108) mmol/L Carbon Dioxide (22-29) mmol/L Anion Gap (12-20) BUN (9-16) mg/dL Creatinine (0.5-1.4) mg/dL Estim Creat Clear Calc Estimated GFR Random Glucose (60-115) mg/dL Lactic Acid (0.5-2.0) mmol/L Calcium (8.4-10.2) mg/dL Magnesium (1.6-2.6) mg/dL Total Bilirubin (0.0-1.0) mg/dL Direct Bilirubin (0.0-0.5) mg/dL AST (5-31) U/L ALT (0-31) U/L Alkaline Phosphatase (39-117) U/L Troponin I High Sens 12.0 (<3.5-17.0) ng/L C-Reactive Protein (< or = 0.50) mg/dL Total Protein (6.5-8.0) g/dL Albumin (3.5-5.0) g/dL Urine Color YELLOW Urine Appearance HAZY Urine pH 5.5 (5.0-8.0) Ur Specific [place] 1.015 (1.005-1.025) Urine Protein 1+ H (NEG-TRACE) MG/DL Urine Glucose (UA) NEG (NEG) MG/DL Urine Ketones 15 (NEG) MG/DL Urine Blood TRACE (NEG) Urine Nitrite NEG (NEG) Ur Leukocyte Esterase NEG (NEG) Urine RBC 1-4 (0) /HPF Urine WBC 1-4 (0-4) /HPF Ur Squamous Epith Cells 1+ /LPF Ur Renal Epithelial Cell TRACE /LPF Calcium Oxalate Crystal TRACE /LPF Amorphous Sediment 2+ /LPF Urine Bacteria NONE /LPF Granular Casts 5-9 /LPF Coronavirus (PCR) NEGATIVE (Negative) Influenza Type A (PCR) NEGATIVE (Negative) Influenza Type B (PCR) NEGATIVE (Negative) RSV RNA Qual (PCR) NEGATIVE (Negative) <Sophie Logan, RECEIVING WORKER - Last Filed: 03/16/21 16:19> Lab Results 03/16/21 03/16/21 03/16/21 Range/Units 09:01 09:03 09:03 WBC 5.3 (4.8-10.8) X10*3/uL RBC 4.22 (4.20-5.50) X10*6/uL Hgb 12.9 (12.0-16.0) g/dl Hct 37.8 (37-47) % MCV 89.6 (80-98) fL MCH 30.6 (27.0-33.0) pg MCHC 34.1 (31.0-35.0) g/dl RDW 12.8 (11.0-16.0) % Plt Count 128 L D (160-400) X10*3/uL MPV 9.9 (9.4-12.3) fL Immature Gran % (Auto) Cancelled Neut % (Auto) Cancelled Lymph % (Auto) Cancelled [place] % (Auto) Cancelled Eos % (Auto) Cancelled Baso % (Auto) Cancelled Lymph # (Auto) Cancelled [place] # (Auto) Cancelled Eos # (Auto) Cancelled Baso # (Auto) Cancelled Abs Immat Gran (auto) Cancelled Absolute Neuts (auto) Cancelled Absolute Nucleated RBC 0.000 (0.0-0.012) X10*3/uL Nucleated RBC % (auto) 0.0 (0.0-0.2) /100WBC Neutrophils % (Manual) 84 H (45-73) % Band Neutrophils % 7 H (3-5) % Lymphocytes % (Manual) 8 L (20-40) % Atypical Lymphs % (Man) 1 (0-6) % Abs Neuts (Manual) 4.8 (2.2-7.9) X10*3/uL Lymphocytes # (Manual) 0.4 L (0.6-4.8) X10*3/uL Atyp Lymphs # (Manual) 0.1 x10*3/uL Toxic Vacuolation PRESENT WBC Morphology Comment DYSMORPHIC Platelet Estimate SLIGHTLY DECREASED (NORMAL) Plt Morphology Comment NORMAL RBC Morphology NOTED Acanthocytes (Spur) 1+ (0-2) /OIF ESR 14 (0-20) MM/HR PT (10.8-13.0) SEC INR (0.9-1.1) Sodium (135-145) mmol/L Potassium (3.3-5.1) mmol/L Chloride (96-108) mmol/L Carbon Dioxide (22-29) mmol/L Anion Gap (12-20) BUN (9-16) mg/dL Creatinine (0.5-1.4) mg/dL Estim Creat Clear Calc Estimated GFR Random Glucose (60-115) mg/dL Lactic Acid 1.0 (0.5-2.0) mmol/L Calcium (8.4-10.2) mg/dL Magnesium (1.6-2.6) mg/dL Total Bilirubin (0.0-1.0) mg/dL Direct Bilirubin (0.0-0.5) mg/dL AST (5-31) U/L ALT (0-31) U/L Alkaline Phosphatase (39-117) U/L Troponin I High Sens (<3.5-17.0) ng/L C-Reactive Protein (< or = 0.50) mg/dL Total Protein (6.5-8.0) g/dL Albumin (3.5-5.0) g/dL Urine Color Urine Appearance Urine pH (5.0-8.0) Ur Specific [place] (1.005-1.025) Urine Protein (NEG-TRACE) MG/DL Urine Glucose (UA) (NEG) MG/DL Urine Ketones (NEG) MG/DL Urine Blood (NEG) Urine Nitrite (NEG) Ur Leukocyte Esterase (NEG) Urine RBC (0) /HPF Urine WBC (0-4) /HPF Ur Squamous Epith Cells /LPF Ur Renal Epithelial Cell /LPF Calcium Oxalate Crystal /LPF Amorphous Sediment /LPF Urine Bacteria /LPF Granular Casts /LPF Coronavirus (PCR) (Negative) Influenza Type A (PCR) (Negative) Influenza Type B (PCR) (Negative) RSV RNA Qual (PCR) (Negative) 03/16/21 03/16/21 03/16/21 Range/Units 09:03 09:03 09:03 WBC (4.8-10.8) X10*3/uL RBC (4.20-5.50) X10*6/uL Hgb (12.0-16.0) g/dl Hct (37-47) % MCV (80-98) fL MCH (27.0-33.0) pg MCHC (31.0-35.0) g/dl RDW (11.0-16.0) % Plt Count (160-400) X10*3/uL MPV (9.4-12.3) fL Immature Gran % (Auto) Neut % (Auto) Lymph % (Auto) [place] % (Auto) Eos % (Auto) Baso % (Auto) Lymph # (Auto) [place] # (Auto) Eos # (Auto) Baso # (Auto) Abs Immat Gran (auto) Absolute Neuts (auto) Absolute Nucleated RBC (0.0-0.012) X10*3/uL Nucleated RBC % (auto) (0.0-0.2) /100WBC Neutrophils % (Manual) (45-73) % Band Neutrophils % (3-5) % Lymphocytes % (Manual) (20-40) % Atypical Lymphs % (Man) (0-6) % Abs Neuts (Manual) (2.2-7.9) X10*3/uL Lymphocytes # (Manual) (0.6-4.8) X10*3/uL Atyp Lymphs # (Manual) x10*3/uL Toxic Vacuolation WBC Morphology Comment Platelet Estimate (NORMAL) Plt Morphology Comment RBC Morphology Acanthocytes (Spur) /OIF ESR (0-20) MM/HR PT 12.3 (10.8-13.0) SEC INR 1.0 (0.9-1.1) Sodium 137 (135-145) mmol/L Potassium 3.3 (3.3-5.1) mmol/L Chloride 100 (96-108) mmol/L Carbon Dioxide 20 L (22-29) mmol/L Anion Gap 20 (12-20) BUN 15 (9-16) mg/dL Creatinine 1.34 (0.5-1.4) mg/dL Estim Creat Clear Calc 43.4 Estimated GFR 41 Random Glucose 109 (60-115) mg/dL Lactic Acid (0.5-2.0) mmol/L Calcium 8.8 D (8.4-10.2) mg/dL Magnesium 1.8 (1.6-2.6) mg/dL Total Bilirubin 0.6 (0.0-1.0) mg/dL Direct Bilirubin 0.3 (0.0-0.5) mg/dL AST 65 H (5-31) U/L ALT 20 (0-31) U/L Alkaline Phosphatase 65 (39-117) U/L Troponin I High Sens 14.8 D (<3.5-17.0) ng/L C-Reactive Protein 11.76 H (< or = 0.50) mg/dL Total Protein 7.3 (6.5-8.0) g/dL Albumin 4.3 (3.5-5.0) g/dL Urine Color Urine Appearance Urine pH (5.0-8.0) Ur Specific [place] (1.005-1.025) Urine Protein (NEG-TRACE) MG/DL Urine Glucose (UA) (NEG) MG/DL Urine Ketones (NEG) MG/DL Urine Blood (NEG) Urine Nitrite (NEG) Ur Leukocyte Esterase (NEG) Urine RBC (0) /HPF Urine WBC (0-4) /HPF Ur Squamous Epith Cells /LPF Ur Renal Epithelial Cell /LPF Calcium Oxalate Crystal /LPF Amorphous Sediment /LPF Urine Bacteria /LPF Granular Casts /LPF Coronavirus (PCR) (Negative) Influenza Type A (PCR) (Negative) Influenza Type B (PCR) (Negative) RSV RNA Qual (PCR) (Negative) 03/16/21 03/16/21 03/16/21 Range/Units 09:19 11:01 11:52 WBC (4.8-10.8) X10*3/uL RBC (4.20-5.50) X10*6/uL Hgb (12.0-16.0) g/dl Hct (37-47) % MCV (80-98) fL MCH (27.0-33.0) pg MCHC (31.0-35.0) g/dl RDW (11.0-16.0) % Plt Count (160-400) X10*3/uL MPV (9.4-12.3) fL Immature Gran % (Auto) Neut % (Auto) Lymph % (Auto) [place] % (Auto) Eos % (Auto) Baso % (Auto) Lymph # (Auto) [place] # (Auto) Eos # (Auto) Baso # (Auto) Abs Immat Gran (auto) Absolute Neuts (auto) Absolute Nucleated RBC (0.0-0.012) X10*3/uL Nucleated RBC % (auto) (0.0-0.2) /100WBC Neutrophils % (Manual) (45-73) % Band Neutrophils % (3-5) % Lymphocytes % (Manual) (20-40) % Atypical Lymphs % (Man) (0-6) % Abs Neuts (Manual) (2.2-7.9) X10*3/uL Lymphocytes # (Manual) (0.6-4.8) X10*3/uL Atyp Lymphs # (Manual) x10*3/uL Toxic Vacuolation WBC Morphology Comment Platelet Estimate (NORMAL) Plt Morphology Comment RBC Morphology Acanthocytes (Spur) /OIF ESR (0-20) MM/HR PT (10.8-13.0) SEC INR (0.9-1.1) Sodium (135-145) mmol/L Potassium (3.3-5.1) mmol/L Chloride (96-108) mmol/L Carbon Dioxide (22-29) mmol/L Anion Gap (12-20) BUN (9-16) mg/dL Creatinine (0.5-1.4) mg/dL Estim Creat Clear Calc Estimated GFR Random Glucose (60-115) mg/dL Lactic Acid (0.5-2.0) mmol/L Calcium (8.4-10.2) mg/dL Magnesium (1.6-2.6) mg/dL Total Bilirubin (0.0-1.0) mg/dL Direct Bilirubin (0.0-0.5) mg/dL AST (5-31) U/L ALT (0-31) U/L Alkaline Phosphatase (39-117) U/L Troponin I High Sens 12.0 (<3.5-17.0) ng/L C-Reactive Protein (< or = 0.50) mg/dL Total Protein (6.5-8.0) g/dL Albumin (3.5-5.0) g/dL Urine Color YELLOW Urine Appearance HAZY Urine pH 5.5 (5.0-8.0) Ur Specific [place] 1.015 (1.005-1.025) Urine Protein 1+ H (NEG-TRACE) MG/DL Urine Glucose (UA) NEG (NEG) MG/DL Urine Ketones 15 (NEG) MG/DL Urine Blood TRACE (NEG) Urine Nitrite NEG (NEG) Ur Leukocyte Esterase NEG (NEG) Urine RBC 1-4 (0) /HPF Urine WBC 1-4 (0-4) /HPF Ur Squamous Epith Cells 1+ /LPF Ur Renal Epithelial Cell TRACE /LPF Calcium Oxalate Crystal TRACE /LPF Amorphous Sediment 2+ /LPF Urine Bacteria NONE /LPF Granular Casts 5-9 /LPF Coronavirus (PCR) NEGATIVE (Negative) Influenza Type A (PCR) NEGATIVE (Negative) Influenza Type B (PCR) NEGATIVE (Negative) RSV RNA Qual (PCR) NEGATIVE (Negative) <Barrington Low MD - Last Filed: 03/16/21 10:42> Imaging Data Chest x-ray: Attestation: I personally reviewed and interpreted this imaging study as follows: <Sophie Logan NP - Last Filed: 03/16/21 16:19> Radiologist's impression: EXAMINATION: XR CHEST CLINICAL INFORMATION: Cough. Shortness of breath. COMPARISON: Previous chest CTA most recent February 2021 and chest x-ray most recent February 2011 TECHNIQUE: Frontal view of the chest was obtained. FINDINGS: The cardiac and mediastinal contours are normal. There are nodular densities at both lung bases which when compared previous chest CT scan likely represent nipple shadows. The lungs are otherwise clear. There is no pleural effusion or pneumothorax. Bony structures are unremarkable. XR/XR chest 1V IMPRESSION: No evidence for acute disease in the chest. <Sophie Logan NP - Last Filed: 03/16/21 16:19> ECG Data Attestation: I personally reviewed and interpreted this ECG as follows: <Sophie Logan NP - Last Filed: 03/16/21 16:19> Interpretation: NSR with rate 87, normal pr, normal qrs, normal qtc <Sophie Logan NP - Last Filed: 03/16/21 16:19> Discharge Plan Discharge Clinical Impression: Febrile illness <BEN Jose Last Filed: 03/16/21 16:19> Patient Disposition: Home, Self-Care <BEN Jose Last Filed: 03/16/21 16:19> Instructions: Fever in Adults (ED) <BEN Jose Last Filed: 03/16/21 16:19> Additional Instructions: We are treating you for presumed tick borne illness. Next dose of doxycycline tomorrow morning Take zofran 30 minutes prior to doxycyline Return if unable to tolerate with vomiting, severe abdominal pain as discussed <BEN Jose Last Filed: 03/16/21 16:19> Prescriptions: New doxycycline monohydrate 100 mg capsule 100 mg PO BID Qty: 20 RF: 0 ondansetron 4 mg tablet,disintegrating 4 mg PO Q6H PRN (Reason: nausea and vomiting) Qty: 10 RF: 0 No Action azithromycin 250 mg tablet See Rx Instructions PO .COMPLEX Qty: 6 RF: 0 <Sophie Logan NP - Last Filed: 03/16/21 16:19> Referrals: Son Thompson MD [Primary Care Provider] - 2 days <BEN Jose Last Filed: 03/16/21 16:19> Interventions: ED Discharge Assessment Last Done: 03/16/21 14:32 <Sophie Logan NP - Last Filed: 03/16/21 16:19> Discharge Date/Time: 03/16/21 14:33 <Sophie Logan NP - Last Filed: 03/16/21 16:19>
[2021-03-16 08:46] VITALS: BP 115/69; PULSE 93; RESP 20; TEMP 37.4; O2SAT 98; BMI 23.3
[2021-03-16] MEDS: 0.9 % Sodium Chloride 1,000 ML 999 ML IV ×2 (09:13→11:50)
[2021-03-16] MEDS: Morphine Sulfate 4 MG/ML CARTRIDGE IVPUSH ×2 (09:14→11:43)
[2021-03-16] MEDS: ondansetron HCL 4 MG/2 ML VIAL IVPUSH (09:14)
[2021-03-16 09:15] LABS: Hemoglobin 12.9 g/dl (12.0-16.0); PLT CLUMP 1; Red Cell Distribution Width 12.8 % (11.0-16.0)
[2021-03-16 09:17] LABS: Hematocrit 37.8 % (37-47); Mean Corpuscular HGB Conc 34.1 g/dl (31.0-35.0); Mean Corpuscular Hemoglobin 30.6 pg (27.0-33.0); Mean Corpuscular Volume 89.6 fL (80-98); Mean Platelet Volume 9.9 fL (9.4-12.3); Platelet Count 128 X10*3/uL (160-400); Red Blood Count 4.22 X10*6/uL (4.20-5.50); White Blood Count 5.3 X10*3/uL (4.8-10.8)
[2021-03-16 09:26] LABS: Prothrombin Time 12.3 SEC (10.8-13.0)
[2021-03-16 10:05] LABS: Atypical Lymph Absolute Manual 0.1 x10*3/uL; Atypical Lymphs Percent Manual 1 % (0-6); Band Neutrophils Percent 7 % (3-5); Lymphocytes Absolute Manual 0.4 X10*3/uL (0.6-4.8); Lymphocytes Percent Manual 8 % (20-40); Neutrophils Absolute Manual 4.8 X10*3/uL (2.2-7.9); Neutrophils Percent Manual 84 % (45-73)
[2021-03-16 10:08] LABS: Alanine Aminotransferase 20 U/L (0-31); Albumin Level 4.3 g/dL (3.5-5.0); Alkaline Phosphatase 65 U/L (39-117); Anion Gap 20 (12-20); Aspartate Amino Transferase 65 U/L (5-31); Bilirubin Direct 0.3 mg/dL (0.0-0.5); Bilirubin Total 0.6 mg/dL (0.0-1.0); Blood Urea Nitrogen 15 mg/dL (9-16); C Reactive Protein 11.76 mg/dL (< or = 0.50); Calcium 8.8 mg/dL (8.4-10.2); Carbon Dioxide 20 mmol/L (22-29); Chloride 100 mmol/L (96-108); Creatinine Clr Calc Pharmacy 43.4; Estimated Glomerular Filt Rate 41; Glucose Random 109 mg/dL (60-115); Magnesium 1.8 mg/dL (1.6-2.6); Potassium 3.3 mmol/L (3.3-5.1); Sodium 137 mmol/L (135-145); Total Protein 7.3 g/dL (6.5-8.0)
[2021-03-16 10:09] LABS: Erythrocyte Sedimentation Rate 14 MM/HR (0-20)
[2021-03-16 10:10] LABS: Influenza A PCR NEGATIVE (Negative); Influenza B PCR NEGATIVE (Negative); Resp Syncy Virus RNA Qual PCR NEGATIVE (Negative); SARS COV2 PCR INHOUSE NEGATIVE (Negative)
[2021-03-16 10:10] LABS: Platelet Estimate SLIGHTLY DECREASED (NORMAL); Platelet Morphology Comment NORMAL; Toxic Vacuolation PRESENT; WBC Morphology Comment DYSMORPHIC
[2021-03-16 10:11] LABS: Acanthocytes 1+ (0-2) /OIF; RBC Morphology NOTED
[2021-03-16 10:12] LABS: Troponin-I High Sensitivity 14.8 ng/L (<3.5-17.0)
[2021-03-16 10:38] VITALS: BP 110/64; PULSE 85; RESP 16; O2SAT 98
[2021-03-16 11:10] LABS: Glucose Urine UA NEG (NEG); Leukocyte Esterase Urine NEG (NEG); Nitrite Urine NEG (NEG); PH 5.5 (5.0-8.0); Specific Gravity - Urine 1.015 (1.005-1.025); Urine Blood TRACE (NEG); Urine Ketones 15 MG/DL (NEG); Urine Protein 1+ MG/DL (NEG-TRACE)
[2021-03-16 11:12] LABS: Appearance Urine HAZY; Color Urine YELLOW
[2021-03-16 11:24] LABS: Amorphous Sediment Urine 2+ /LPF; Calcium Oxalate Crystals Urine TRACE /LPF; Renal Epithelial Cells Urine TRACE /LPF; Squamous Epithelial Cell Urine 1+ /LPF
[2021-03-16] MEDS: Acetaminophen 325 MG TABLET 975 MG PO (11:43)
[2021-03-16] MEDS: Famotidine/PF 20 MG/2 ML VIAL IVPUSH (11:43)
[2021-03-16] MEDS: Doxycycline Hyclate 100 MG in 0.9 % Sodium Chloride 250 ML 166.67 MG IV (11:43)
[2021-03-16 11:50] VITALS: BP 117/72; PULSE 97; RESP 22; TEMP 38.7; O2SAT 98
[2021-03-16 12:09] VITALS: BP 125/65; PULSE 97; RESP 16; TEMP 38.4; O2SAT 97
[2021-03-16 13:37] VITALS: BP 109/56; PULSE 90; RESP 16; TEMP 37.9; O2SAT 96
[2021-03-16 14:00] VITALS: BP 114/58; PULSE 89; RESP 16; O2SAT 97
[2021-03-17 08:57] LABS: Lyme Abs Screen <0.90 index
[2021-03-24 23:07] LABS: A. Phagocytophilum Ab IgG <1:64 (<1:64); A. Phagocytophilum Ab IgM <1:20 (<1:20); E. Chaffeensis Ab IgG <1:64 (<1:64); E. Chaffeensis Ab IgM <1:20 (<1:20)
[2021-03-25 14:07] LABS: Babesia IgG <1:64 titer (<1:64); Babesia IgM <1:20 titer (<1:20)
== END 2021-03-16 14:33 | disposition home or self-care (01) ==
PROVIDERS: Nurse Practitioner Family; Emergency Provider Emergency Medicine; PCP Internal Medicine
DX: R50.9 Fever, unspecified (principal); R05 Cough; R06.02 Shortness of breath; Z20.822 Contact with and (suspected) exposure to COVID-19; Z79.899 Other long term (current) drug therapy
CPT/HCPCS: 0241U; 36415; 71045; 80048; 80076; 81001; 83605; 83735; 84484; 85007; 85027; 85610; 85652; 86140; 86617; 86618; 86666; 86753; 87040; 87205; 93005; 96361; 96365; 96375; 99285; J2270; J2405

== ENCOUNTER 2021-03-27 17:00 | Emergency (ER) | payer BC, SELFPAY ==
--- NOTE | ~2021-03-27 | XR_ITS ---
EXAMINATION: XR chest 2V CLINICAL INFORMATION: Pain COMPARISON: Prior chest x-ray 03/16/2021 TECHNIQUE: XR chest 2V Lungs and [place]: Platelike atelectasis at left lung base otherwise clear. Round opacity projecting over the left lower lobe likely nipple shadow unchanged. Pleura: Normal. Costophrenic angles are sharp. No pneumothorax. Heart: The heart is normal in size. Mediastinum: The mediastinum is within normal limits.. Bones: Skeletal structures included are normal for patient's age. XR/XR chest 2V IMPRESSION: Platelike atelectasis left lung base. Exam otherwise normal.
--- NOTE | ~2021-03-27 | CT_ITS ---
EXAMINATION: CT THORACIC SPINE WITH CONTRAST CLINICAL INFORMATION: Pain, rule out abscess. COMPARISON: CTA chest abdomen and pelvis 03/13/2021. TECHNIQUE: Axial imaging. Sagittal and coronal reconstructions. Imaging with contrast, 65 mL Omnipaque 350. This CT examination was performed using dose optimization techniques as appropriate, variously including the following: *Automated exposure control. *Adjustment of mA and/or kV according to patient size (this includes techniques or standardized protocols for targeted exams where dose is matched to indication/reason for exam; i.e. extremities or head). *Use of iterative reconstruction technique. DLP: 388 mGy-cm FINDINGS: Moderate spondylosis in the visualized lower cervical spine. Mild anterolisthesis of C7 on T1. In the visualized spine, vertebral body heights are maintained. No evidence of acute fracture. Disc spaces are maintained. No significant prevertebral soft tissue swelling is seen. No organized fluid collection or abscess is identified in the prevertebral/paravertebral space. The central canal appears maintained. No focal fluid collections identified within the central canal, evaluation limited by CT. Visualized thyroid gland appears unremarkable. No enlarged mediastinal or hilar lymph nodes seen. Calcified right hilar lymph nodes. No enlarged lymph nodes are visualized in the retroperitoneum of the upper abdomen. Normal caliber aorta. No acute findings in the visualized abdominal structures. Atelectasis/scarring in the medial aspect of bilateral lung bases. No dense consolidation. CT/CT thoracic spine w con IMPRESSION: 1. No CT evidence of acute fracture or subluxation in the thoracic spine. 2. No significant prevertebral soft tissue swelling. No focal fluid collections or abscess is identified in the prevertebral/paravertebral space. Further evaluation with MRI as clinically warranted. 3. Bibasilar atelectasis. 4. Moderate spondylosis in the visualized lower cervical spine. Mild anterolisthesis of C7 on T1.
[2021-03-27 17:08] VITALS: BP 127/83; PULSE 97; RESP 16; TEMP 36.7; O2SAT 97; BMI 22.7
[2021-03-27 17:42] LABS: Basophils Percent Auto 0.7 % (0-2); Eosinophils Absolute Auto 0.1 X10*3/uL (0.0-0.4); Eosinophils Percent Auto 1.6 % (0-4); Hematocrit 32.1 % (37-47); Hemoglobin 10.6 g/dl (12.0-16.0); Imm Gran Abs Auto 0.02 X10*3/uL (0.00-0.03); Imm Gran Pct Auto 0.4 % (0.0-0.4); Lymphocytes Absolute Auto 1.8 X10*3/uL (1.2-4.9); Lymphocytes Percent Auto 31.6 % (20-40); MANUAL DIFF FLAG SCAN; Mean Corpuscular Hemoglobin 29.8 pg (27.0-33.0); Mean Corpuscular Volume 90.2 fL (80-98); Mean Platelet Volume 9.4 fL (9.4-12.3); Monocytes Absolute Auto 1.3 X10*3/uL (0.1-1.2); Monocytes Percent Auto 22.6 % (2-11); Neutrophils Absolute Auto 2.5 X10*3/uL (2.0-8.3); Neutrophils Percent Auto 43.1 % (45-73); Platelet Count 405 X10*3/uL (160-400); Red Blood Count 3.56 X10*6/uL (4.20-5.50); Red Cell Distribution Width 13.2 % (11.0-16.0); SCAN SMEAR FLAG 1; White Blood Count 5.7 X10*3/uL (4.8-10.8)
[2021-03-27 18:00] VITALS: BP 145/89; PULSE 88; RESP 18; O2SAT 98
[2021-03-27 18:04] LABS: SLIDE REVIEW VERIFIED
--- NOTE | 2021-03-27 18:07 | PC.NURSE ---
pt alert and oriented, skin appropriate for ethnicity, pt reports for about two weeks having high fevers/nausea/sever leg pain that starts behind her knees and travels all the way back, most back pain seems to be located in mid back area about the bra line area. pt reports the pain feels like pulling, unable to lay down at night. pt was checked for lyme disease was negative. denies chest pain/sob/fevers at this time. pt in tears due to pain
[2021-03-27 18:08] LABS: Anion Gap 12 (12-20); Blood Urea Nitrogen 11 mg/dL (9-16); Calcium 9.3 mg/dL (8.4-10.2); Carbon Dioxide 29 mmol/L (22-29); Chloride 105 mmol/L (96-108); Creatinine Clr Calc Pharmacy 76.3; Estimated Glomerular Filt Rate > 60; Glucose Random 91 mg/dL (60-115); Potassium 4.3 mmol/L (3.3-5.1); Sodium 142 mmol/L (135-145)
[2021-03-27] MEDS: LORazepam 1 MG TABLET PO (18:18)
[2021-03-27] MEDS: oxyCODONE HCl Immed Release 5 MG TABLET 10 MG PO (18:18)
[2021-03-27 18:19] LABS: Influenza A PCR NEGATIVE (Negative); Influenza B PCR NEGATIVE (Negative); Resp Syncy Virus RNA Qual PCR NEGATIVE (Negative); SARS COV2 PCR INHOUSE NEGATIVE (Negative)
[2021-03-27] MEDS: Morphine Sulfate 4 MG/ML CARTRIDGE IVPUSH ×2 (19:17→21:00)
[2021-03-27] MEDS: iohexoL 350 MG/ML 100 ML INFUS..BTL IV (19:34)
[2021-03-27 20:00] VITALS: BP 145/85; PULSE 77; RESP 14; TEMP 36.9; O2SAT 97
[2021-03-27 20:57] VITALS: BP 125/92; PULSE 82; RESP 18; TEMP 36.8; O2SAT 97
--- NOTE | 2021-03-27 21:21 | ED.BACK ---
HPI - Back Pain/Injury General Chief Complaint: Back Pain/Injury <ALMA Bonilla Last Filed: 03/27/21 21:38> Stated Complaint: back pain <ALMA Bonilla Last Filed: 03/27/21 21:38> Time Seen by Provider: 03/27/21 17:39 <ALMA Bonilla Last Filed: 03/27/21 21:38> History of Present Illness HPI Narrative: Patient presents today for severe upper back pain between the shoulder blades which has been going on for several days, there is no injury there is no numbness weakness or tingling no radiation of the pain no chest pain no shortness of breath no abdominal pain She was seen twice in the last 2 weeks prior to this visit for a febrile illness which at the time included shortness of breath chest and abdominal pain which were evaluated with CT a and an abdominal CT both of which were negative. She has had 2 prior negative COVID tests. At the time of the 2nd visit there was concern she might have had a tick-borne disease so she was started on doxycycline Today she has no changes to bowel or bladder and no incontinence no burning with urination <ALMA Bonilla Last Filed: 03/27/21 21:38> Related Data Home Medications: Previous Rx's Medication Instructions Recorded azithromycin 250 mg tablet See Rx Instructions PO .COMPLEX #6 10/01/20 tab doxycycline monohydrate 100 mg PO BID #20 cap 03/16/21 ondansetron 4 mg PO Q6H PRN #10 tab 03/16/21 diazepam [Valium] 2 mg PO TID PRN #10 tab 03/27/21 oxycodone-acetaminophen [Percocet] 1 tab PO TID PRN #10 tab 03/27/21 <ALMA Bonilla - Last Filed: 03/27/21 21:38> Allergies/Adverse Reactions: Allergies Allergy/AdvReac Type Severity Reaction Status Date / Time No Known Allergies Allergy Mild N/A Verified 03/27/21 17:14 <ALMA Bonilla Last Filed: 03/27/21 21:38> Review of Systems Review of Systems: Positive for upper back pain Negatives are no fever no chills no dizziness no weakness no fainting no feeling faint no headache no neck pain no chest pain no shortness of breath no palpitation, no abdominal pain no nausea vomiting or diarrhea, no dysuria no burning with urination no incontinence no frequency no change to bowel or bladder no numbness weakness or tingling no skin <ALMA Bonilla - Last Filed: 03/27/21 21:38> Yes all other systems are reviewed and are negative <ALMA Bonilla - Last Filed: 03/27/21 21:38> PMFSH Past Medical History PMFSH Narrative: Records from last 2 visits within the last 2 weeks were reviewed, patient denies any significant medical history until the last 2 weeks <ALMA Bonilla - Last Filed: 03/27/21 21:38> Source: nursing notes reviewed <ALMA Bonilla - Last Filed: 03/27/21 21:38> Surgical History: Surgical History History of hysterectomy <ALMA Bonilla - Last Filed: 03/27/21 21:38> Social History Social History: Social History Alcohol intake: current Alcohol intake frequency: holidays/special occasions only Patient Tobacco Use Status: Current someday Tobacco user Use of substances other than those prescribed or required for medical reasons: No Substance Use Type: Marijuana Advance Directives: No Advance Directives Information Provided: No <ALMA Bonilla - Last Filed: 03/27/21 21:38> Physical Exam Vital Signs: Vital Signs: Last Vital Signs Temp 98.2 F 03/27/21 22:00 Pulse 73 03/27/21 23:28 Resp 16 03/27/21 23:28 BP 142/86 H 03/27/21 23:28 Pulse Ox 98 03/27/21 23:28 Body Mass Index 22.7 <ALMA Bonilla - Last Filed: 03/27/21 21:38> Vital Signs: Last Vital Signs Temp 98.2 F 03/27/21 22:00 Pulse 73 03/27/21 23:28 Resp 16 03/27/21 23:28 BP 142/86 H 03/27/21 23:28 Pulse Ox 98 03/27/21 23:28 Body Mass Index 22.7 <Lnida Valladares MD - Last Filed: 03/27/21 23:47> General appearance is uncomfortable appearing Head is normocephalic atraumatic Neck is supple and nontender The chest is clear to auscultation bilateral with symmetric equal breath sounds Heart no murmur Chest wall is nontender, there is no pain with deep breathing The abdomen is soft and nontender The back exam there is tenderness between the scapula, there is no limit on range of motion, there is no CVA tenderness Extremities are full range of motion x4 Rectal exam is guaiac negative but there was very little stool on the glove Neuro there is no gross motor or sensory deficit, her balance is normal, cranial nerves 2-12 are intact as tested, motor is 5/5 x4 and symmetrical she has tested walking on her toes walking on her heels and is able to squat all of which were normal, speech is normal both comprehension and expression <ALMA Bonilla - Last Filed: 03/27/21 21:38> Course Course Course Narrative: CBCs showed a new anemia with a hemoglobin of 10.6 and a hematocrit of 32.1 compared to 12.9 and 38 on the prior visit a week ago She denied any bleeding or rash, denies any blood in the stool and guaiac exam was negative chemistry showed normal renal function There was no significant abnormality on chemistries The pain in the middle of her back was very well controlled with 4 of morphine but the pain came back about an hour and a half later and reached its a maximum intensity 21:30 case is signed out to Dr. Valladares who is aware of the patient and has examined the patient with CT of thoracic spine results pending Patient has just been given another 4 of morphine Case is signed out to Dr. Valladares at 09:32 evaluate efficacy of pain control and to re-evaluate and dispo patient <ALMA Bonilla - Last Filed: 03/27/21 21:38> I received sign-out from ALMA Alves. Patient is overall feeling much better. Patient was able to walk unassisted, able to flex and extend her back. Patient states that the pain is still there but improving. Patellar reflexes normal, good strength in both lower extremities. Urinalysis negative, unlikely to have nephrolithiasis causing back pain, non visualized on CT scan. I discussed with the patient that depending on how she feels, we can either admit her for pain management versus sending her home with muscle relaxants and pain medications. Patient opted to go home with pain medications and muscle relaxants. <Linda Valladares MD - Last Filed: 03/27/21 23:47> MDM - Back Pain/Injury Lab Data Attestation: I reviewed the patient's lab results. <ALMA Bonilla - Last Filed: 03/27/21 21:38> Result diagrams: : 03/27/21 17:37 03/27/21 17:37 <ALMA Bonilla - Last Filed: 03/27/21 21:38> Labs: Lab Results 03/27/21 03/27/21 03/27/21 Range/Units 17:37 17:37 17:37 WBC 5.7 (4.8-10.8) X10*3/uL RBC 3.56 L (4.20-5.50) X10*6/uL Hgb 10.6 L (12.0-16.0) g/dl Hct 32.1 L (37-47) % MCV 90.2 (80-98) fL MCH 29.8 (27.0-33.0) pg MCHC 33.0 (31.0-35.0) g/dl RDW 13.2 (11.0-16.0) % Plt Count 405 H D (160-400) X10*3/uL MPV 9.4 (9.4-12.3) fL Immature Gran % (Auto) 0.4 (0.0-0.4) % Neut % (Auto) 43.1 L (45-73) % Lymph % (Auto) 31.6 (20-40) % [place] % (Auto) 22.6 H (2-11) % Eos % (Auto) 1.6 (0-4) % Baso % (Auto) 0.7 (0-2) % Lymph # (Auto) 1.8 (1.2-4.9) X10*3/uL [place] # (Auto) 1.3 H (0.1-1.2) X10*3/uL Eos # (Auto) 0.1 (0.0-0.4) X10*3/uL Baso # (Auto) 0.0 (0.0-0.2) X10*3/uL Abs Immat Gran (auto) 0.02 (0.00-0.03) X10*3/uL Absolute Neuts (auto) 2.5 (2.0-8.3) X10*3/uL Absolute Nucleated RBC 0.000 (0.0-0.012) X10*3/uL Nucleated RBC % (auto) 0.0 (0.0-0.2) /100WBC Smear Tech's Comments VERIFIED Sodium 142 (135-145) mmol/L Potassium 4.3 D (3.3-5.1) mmol/L Chloride 105 (96-108) mmol/L Carbon Dioxide 29 (22-29) mmol/L Anion Gap 12 (12-20) BUN 11 (9-16) mg/dL Creatinine 0.79 (0.5-1.4) mg/dL Estim Creat Clear Calc 76.3 Estimated GFR > 60 Random Glucose 91 (60-115) mg/dL Calcium 9.3 (8.4-10.2) mg/dL Urine Color Urine Appearance Urine pH (5.0-8.0) Ur Specific [place] (1.005-1.025) Urine Protein (NEG-TRACE) MG/DL Urine Glucose (UA) (NEG) MG/DL Urine Ketones (NEG) MG/DL Urine Blood (NEG) Urine Nitrite (NEG) Ur Leukocyte Esterase (NEG) Coronavirus (PCR) NEGATIVE (Negative) Influenza Type A (PCR) NEGATIVE (Negative) Influenza Type B (PCR) NEGATIVE (Negative) RSV RNA Qual (PCR) NEGATIVE (Negative) 03/27/21 Range/Units 23:09 WBC (4.8-10.8) X10*3/uL RBC (4.20-5.50) X10*6/uL Hgb (12.0-16.0) g/dl Hct (37-47) % MCV (80-98) fL MCH (27.0-33.0) pg MCHC (31.0-35.0) g/dl RDW (11.0-16.0) % Plt Count (160-400) X10*3/uL MPV (9.4-12.3) fL Immature Gran % (Auto) (0.0-0.4) % Neut % (Auto) (45-73) % Lymph % (Auto) (20-40) % [place] % (Auto) (2-11) % Eos % (Auto) (0-4) % Baso % (Auto) (0-2) % Lymph # (Auto) (1.2-4.9) X10*3/uL [place] # (Auto) (0.1-1.2) X10*3/uL Eos # (Auto) (0.0-0.4) X10*3/uL Baso # (Auto) (0.0-0.2) X10*3/uL Abs Immat Gran (auto) (0.00-0.03) X10*3/uL Absolute Neuts (auto) (2.0-8.3) X10*3/uL Absolute Nucleated RBC (0.0-0.012) X10*3/uL Nucleated RBC % (auto) (0.0-0.2) /100WBC Smear Tech's Comments Sodium (135-145) mmol/L Potassium (3.3-5.1) mmol/L Chloride (96-108) mmol/L Carbon Dioxide (22-29) mmol/L Anion Gap (12-20) BUN (9-16) mg/dL Creatinine (0.5-1.4) mg/dL Estim Creat Clear Calc Estimated GFR Random Glucose (60-115) mg/dL Calcium (8.4-10.2) mg/dL Urine Color YELLOW Urine Appearance CLEAR Urine pH 6.0 (5.0-8.0) Ur Specific [place] <= 1.005 (1.005-1.025) Urine Protein NEG (NEG-TRACE) MG/DL Urine Glucose (UA) NEG (NEG) MG/DL Urine Ketones NEG (NEG) MG/DL Urine Blood NEG (NEG) Urine Nitrite NEG (NEG) Ur Leukocyte Esterase NEG (NEG) Coronavirus (PCR) (Negative) Influenza Type A (PCR) (Negative) Influenza Type B (PCR) (Negative) RSV RNA Qual (PCR) (Negative) <ALMA Bonilla - Last Filed: 03/27/21 21:38> Lab Results 03/27/21 03/27/21 03/27/21 Range/Units 17:37 17:37 17:37 WBC 5.7 (4.8-10.8) X10*3/uL RBC 3.56 L (4.20-5.50) X10*6/uL Hgb 10.6 L (12.0-16.0) g/dl Hct 32.1 L (37-47) % MCV 90.2 (80-98) fL MCH 29.8 (27.0-33.0) pg MCHC 33.0 (31.0-35.0) g/dl RDW 13.2 (11.0-16.0) % Plt Count 405 H D (160-400) X10*3/uL MPV 9.4 (9.4-12.3) fL Immature Gran % (Auto) 0.4 (0.0-0.4) % Neut % (Auto) 43.1 L (45-73) % Lymph % (Auto) 31.6 (20-40) % [place] % (Auto) 22.6 H (2-11) % Eos % (Auto) 1.6 (0-4) % Baso % (Auto) 0.7 (0-2) % Lymph # (Auto) 1.8 (1.2-4.9) X10*3/uL [place] # (Auto) 1.3 H (0.1-1.2) X10*3/uL Eos # (Auto) 0.1 (0.0-0.4) X10*3/uL Baso # (Auto) 0.0 (0.0-0.2) X10*3/uL Abs Immat Gran (auto) 0.02 (0.00-0.03) X10*3/uL Absolute Neuts (auto) 2.5 (2.0-8.3) X10*3/uL Absolute Nucleated RBC 0.000 (0.0-0.012) X10*3/uL Nucleated RBC % (auto) 0.0 (0.0-0.2) /100WBC Smear Tech's Comments VERIFIED Sodium 142 (135-145) mmol/L Potassium 4.3 D (3.3-5.1) mmol/L Chloride 105 (96-108) mmol/L Carbon Dioxide 29 (22-29) mmol/L Anion Gap 12 (12-20) BUN 11 (9-16) mg/dL Creatinine 0.79 (0.5-1.4) mg/dL Estim Creat Clear Calc 76.3 Estimated GFR > 60 Random Glucose 91 (60-115) mg/dL Calcium 9.3 (8.4-10.2) mg/dL Urine Color Urine Appearance Urine pH (5.0-8.0) Ur Specific [place] (1.005-1.025) Urine Protein (NEG-TRACE) MG/DL Urine Glucose (UA) (NEG) MG/DL Urine Ketones (NEG) MG/DL Urine Blood (NEG) Urine Nitrite (NEG) Ur Leukocyte Esterase (NEG) Coronavirus (PCR) NEGATIVE (Negative) Influenza Type A (PCR) NEGATIVE (Negative) Influenza Type B (PCR) NEGATIVE (Negative) RSV RNA Qual (PCR) NEGATIVE (Negative) 03/27/21 Range/Units 23:09 WBC (4.8-10.8) X10*3/uL RBC (4.20-5.50) X10*6/uL Hgb (12.0-16.0) g/dl Hct (37-47) % MCV (80-98) fL MCH (27.0-33.0) pg MCHC (31.0-35.0) g/dl RDW (11.0-16.0) % Plt Count (160-400) X10*3/uL MPV (9.4-12.3) fL Immature Gran % (Auto) (0.0-0.4) % Neut % (Auto) (45-73) % Lymph % (Auto) (20-40) % [place] % (Auto) (2-11) % Eos % (Auto) (0-4) % Baso % (Auto) (0-2) % Lymph # (Auto) (1.2-4.9) X10*3/uL [place] # (Auto) (0.1-1.2) X10*3/uL Eos # (Auto) (0.0-0.4) X10*3/uL Baso # (Auto) (0.0-0.2) X10*3/uL Abs Immat Gran (auto) (0.00-0.03) X10*3/uL Absolute Neuts (auto) (2.0-8.3) X10*3/uL Absolute Nucleated RBC (0.0-0.012) X10*3/uL Nucleated RBC % (auto) (0.0-0.2) /100WBC Smear Tech's Comments Sodium (135-145) mmol/L Potassium (3.3-5.1) mmol/L Chloride (96-108) mmol/L Carbon Dioxide (22-29) mmol/L Anion Gap (12-20) BUN (9-16) mg/dL Creatinine (0.5-1.4) mg/dL Estim Creat Clear Calc Estimated GFR Random Glucose (60-115) mg/dL Calcium (8.4-10.2) mg/dL Urine Color YELLOW Urine Appearance CLEAR Urine pH 6.0 (5.0-8.0) Ur Specific [place] <= 1.005 (1.005-1.025) Urine Protein NEG (NEG-TRACE) MG/DL Urine Glucose (UA) NEG (NEG) MG/DL Urine Ketones NEG (NEG) MG/DL Urine Blood NEG (NEG) Urine Nitrite NEG (NEG) Ur Leukocyte Esterase NEG (NEG) Coronavirus (PCR) (Negative) Influenza Type A (PCR) (Negative) Influenza Type B (PCR) (Negative) RSV RNA Qual (PCR) (Negative) <Linda Valladares MD - Last Filed: 03/27/21 23:47> Discharge Plan Discharge Clinical Impression: Back pain Qualifiers: Back pain location: back pain in unspecified location Chronicity: acute Back pain laterality: unspecified Qualified Code(s): M54.9 - Dorsalgia, unspecified <ALMA Bonilla - Last Filed: 03/27/21 21:38> Patient Disposition: Home, Self-Care <ALMA Bonilla - Last Filed: 03/27/21 21:38> Instructions: Back Pain (ED) <ALMA Bonilla - Last Filed: 03/27/21 21:38> Prescriptions: New oxycodone-acetaminophen [Percocet] 5-325 mg tablet 1 tab PO TID PRN (Reason: pain) Qty: 10 RF: 0 diazepam [Valium] 2 mg tablet 2 mg PO TID PRN (Reason: muscle spasm) Qty: 10 RF: 0 No Action azithromycin 250 mg tablet See Rx Instructions PO .COMPLEX Qty: 6 RF: 0 doxycycline monohydrate 100 mg capsule 100 mg PO BID Qty: 20 RF: 0 ondansetron 4 mg tablet,disintegrating 4 mg PO Q6H PRN (Reason: nausea and vomiting) Qty: 10 RF: 0 <ALMA Bonilla - Last Filed: 03/27/21 21:38>
[2021-03-27 22:00] VITALS: BP 127/82; PULSE 80; RESP 16; TEMP 36.8; O2SAT 97
[2021-03-27 23:16] LABS: Glucose Urine UA NEG (NEG); Leukocyte Esterase Urine NEG (NEG); Nitrite Urine NEG (NEG); Specific Gravity - Urine <= 1.005 (1.005-1.025); Urine Blood NEG (NEG); Urine Ketones NEG (NEG); Urine Protein NEG (NEG-TRACE)
[2021-03-27 23:17] LABS: Appearance Urine CLEAR; Color Urine YELLOW; UACC Culture Trigger NO
[2021-03-27 23:28] VITALS: BP 142/86; PULSE 73; RESP 16; O2SAT 98
== END 2021-03-28 00:21 | disposition home or self-care (01) ==
PROVIDERS: Emergency Medicine; Emergency Provider Student in an Organized Health Care Education/Training Program; PCP Internal Medicine
DX: M54.9 Dorsalgia, unspecified (principal); Z20.822 Contact with and (suspected) exposure to COVID-19; F17.210 Nicotine dependence, cigarettes, uncomplicated; F12.90 Cannabis use, unspecified, uncomplicated; Z90.710 Acquired absence of both cervix and uterus
CPT/HCPCS: 0241U; 36415; 71046; 72129; 80048; 81003; 85025; 96374; 96376; 99284; J2270; Q9967

== ENCOUNTER 2021-07-26 07:24 | Outpatient (REF) | payer BC, SELFPAY ==
--- NOTE | ~2021-07-26 | MM_ITS ---
EXAMINATION: MM SCREENING DIGITAL BREAST TOMOSYNTHESIS, BILATERAL CLINICAL INFORMATION: Screening. Asymptomatic. The lifetime risk of breast cancer based on the Tyrer-Cuzick Model is 6%. COMPARISON: Mammography: 12/04/2019, 10/02/2018, 07/03/2017 TECHNIQUE: Digital breast tomosynthesis is performed in both the craniocaudal and mediolateral oblique views along with computer-aided detection (CAD). Synthesized 2D images are generated from the tomosynthesis. FINDINGS: There are scattered areas of fibroglandular density (ACR BI-RADS breast composition Category b). There are no significant masses, abnormal calcifications, or other abnormalities. No developing density. The axilla and skin contours are unremarkable. No significant changes. MM/MM tomosynthesis screening BI IMPRESSION: No mammographic evidence of malignancy. ASSESSMENT: BI-RADS 1: Negative RECOMMENDATION: Routine annual mammography screening. This patient's information was entered into a reminder system with a target due date for their next mammogram.
== END 2021-07-26 07:25 | disposition home or self-care (01) ==
LOC: HO.MAMMO 07:24
PROVIDERS: PCP Internal Medicine; Visit Provider Internal Medicine
DX: Z12.31 Encounter for screening mammogram for malignant neoplasm of breast (principal)
CPT/HCPCS: 77063; 77067

== ENCOUNTER 2021-11-23 10:03 | Outpatient (REF) | payer BC, SELFPAY ==
[2021-11-23 11:30] LABS: MANUAL DIFF FLAG NO
[2021-11-23 11:38] LABS: Basophils Percent Auto 0.3 % (0-2); Eosinophils Percent Auto 1.6 % (0-4); Hematocrit 39.6 % (37.0-47.0); Imm Gran Pct Auto 0.2 % (0.0-0.4); Mean Corpuscular HGB Conc 32.8 g/dl (31.0-35.0); Mean Corpuscular Hemoglobin 31.1 pg (27.0-33.0); Mean Corpuscular Volume 94.7 fL (80.0-98.0); Mean Platelet Volume 9.6 fL (9.4-12.3); Monocytes Percent Auto 6.9 % (2-11); Platelet Count 321 X10*3/uL (160-400); Red Blood Count 4.18 X10*6/uL (4.20-5.50); Red Cell Distribution Width 13.1 % (11.0-16.0); White Blood Count 8.8 X10*3/uL (4.8-10.8)
[2021-11-23 11:39] LABS: Eosinophils Absolute Auto 0.1 X10*3/uL (0.0-0.4); Imm Gran Abs Auto 0.02 X10*3/uL (0.00-0.03); Lymphocytes Absolute Auto 1.5 X10*3/uL (1.2-4.9); Monocytes Absolute Auto 0.6 X10*3/uL (0.1-1.2); Neutrophils Absolute Auto 6.5 x10*3/uL (2.0-8.3)
[2021-11-23 12:08] LABS: Alanine Aminotransferase 24 U/L (0-31); Anion Gap 11 (12-20); Aspartate Amino Transferase 26 U/L (5-31); Blood Urea Nitrogen 14 mg/dL (9-16); Calcium 10.1 mg/dL (8.4-10.2); Carbon Dioxide 29 mmol/L (22-29); Chloride 106 mmol/L (96-108); Cholesterol 211 mg/dL; Estimated Glomerular Filt Rate > 60; Glucose Fasting 82 mg/dL (60-99); HDL Cholesterol 93 mg/dL; LDL Cholesterol Calculated 97 mg/dl; Potassium 4.3 mmol/L (3.3-5.1); Sodium 142 mmol/L (135-145); Triglycerides 105 mg/dL
[2021-11-23 12:20] LABS: Vitamin D 25-OH Total 9.9 ng/mL (>30)
== END 2021-11-23 10:04 | disposition home or self-care (01) ==
LOC: HO.HMGCLDS 10:03
PROVIDERS: Visit Provider Internal Medicine
DX: Z00.00 Encounter for general adult medical examination without abnormal findings (principal); E89.40 Asymptomatic postprocedural ovarian failure
CPT/HCPCS: 36415; 80048; 80061; 82306; 84450; 84460; 85025

== ENCOUNTER 2022-07-27 10:56 | Outpatient (REF) | payer BC, SELFPAY ==
--- NOTE | ~2022-07-27 | MM_ITS ---
EXAMINATION: MM SCREENING DIGITAL BREAST TOMOSYNTHESIS, BILATERAL CLINICAL INFORMATION: Screening. Asymptomatic. The lifetime risk of breast cancer based on the Tyrer-Cuzick Model is 6%. COMPARISON: Mammography: 07/26/2021, 12/04/2019, 10/02/2018 TECHNIQUE: Digital breast tomosynthesis is performed in both the craniocaudal and mediolateral oblique views along with computer-aided detection (CAD). Synthesized 2D images are generated from the tomosynthesis. FINDINGS: There are scattered areas of fibroglandular density (ACR BI-RADS breast composition Category b). There are no significant masses, abnormal calcifications, or other abnormalities. Parenchymal pattern is similar to prior studies. There is no developing density or architectural abnormality. The axilla and skin contours are unremarkable. No significant changes. MM/MM tomosynthesis screening BI IMPRESSION: No mammographic evidence of malignancy. ASSESSMENT: BI-RADS 1: Negative RECOMMENDATION: Routine annual mammography screening. This patient's information was entered into a reminder system with a target due date for their next mammogram.
== END 2022-07-27 10:57 | disposition home or self-care (01) ==
LOC: HO.MAMMO 10:56
PROVIDERS: PCP Internal Medicine; Visit Provider Internal Medicine
DX: Z12.31 Encounter for screening mammogram for malignant neoplasm of breast (principal)
CPT/HCPCS: 77063; 77067

== ENCOUNTER 2023-09-03 07:37 | Outpatient (REF) | payer BC, SELFPAY | END 2023-09-03 07:38 | disposition home or self-care (01) | LOC: HO.MAMMO 07:37 | PROVIDERS: PCP Internal Medicine; Visit Provider Internal Medicine | DX: Z12.31 Encounter for screening mammogram for malignant neoplasm of breast (principal) | CPT/HCPCS: 77063; 77067 ==

== ENCOUNTER → 2023-09-03 07:45 | Outpatient (BNV) | payer BC, SELFPAY | PROVIDERS: PCP Internal Medicine; Visit Provider Radiology Diagnostic Radiology | DX: Z12.31 Encounter for screening mammogram for malignant neoplasm of breast (principal) | CPT/HCPCS: 77063; 77067 ==